=== PATIENT | male | born 1960 ===

== ENCOUNTER 2019-04-21 11:47 | Inpatient (IN) | payer BC ==
[2019-04-21] MEDS ORDERED: ACETAMINOPHEN 500 MG TAB ONE (12:24)
[2019-04-21 12:28] LABS: Arterial Blood Carboxyhemoglob 1.3 % (0-1.5); Blood Gas Oxyhemoglobin 92.2 % (94-97); Blood O2 Saturation 94.3 % (92-98.5)
[2019-04-21] MEDS ORDERED: NA CHLORIDE 0.9% 2,000 ML ONE (12:37)
[2019-04-21] MEDS ORDERED: INSULIN -REGULAR HUMAN 50 UNIT/0.5 ML ML ONE (12:37)
[2019-04-21 12:44] LABS: Absolute Lymphocytes (CBC) 0.5 K/uL (0.7-4.9); Basophils % 0.2 % (0-1.3); Hematocrit 46.2 % (39.6-49.0); Lymphocytes % 4.2 % (15.3-44.8); MPV 9.1 fL (7.6-11.3); RBC Red Blood Cell Count 5.19 M/uL (4.33-5.43)
[2019-04-21 12:48] LABS: Protime INR 0.98
[2019-04-21 12:55] LABS: Urine Blood NEGATIVE (NEG); Urine Glucose 2+ (NEG); Urine Protein TRACE (NEG)
[2019-04-21 13:01] LABS: ALT/SGPT 50 U/L (12-78); AST/SGOT 18 U/L (15-37); Alkaline Phosphatase 120 U/L (45-117); BUN Blood Urea Nitrogen 13 mg/dL (7-18); Bicarbonate 24 mmol/L (21-32); Bilirubin Direct 0.2 mg/dL (0-0.2); Bilirubin Total 0.8 mg/dL (0.2-1.0); CKMB Creatine Kinase MB 1.2 ng/mL (0.3-3.6); Creatine Phosphokinase 112 U/L (39-308); Glucose Level 361 mg/dL (74-106); Lipase 114 U/L (73-393); Potassium 3.9 mmol/L (3.5-5.1); Sodium Level 135 mmol/L (136-145); Troponin (Emerg Dept Use Only) < 0.02 ng/mL (0.0-0.045)
[2019-04-21 13:07] LABS: Urine Bacteria NONE SEEN /HPF (NONE SEEN); Urine Culture Reflex Order NOT NEEDED; Urine RBC <5 /HPF (NONE SEEN)
--- NOTE | 2019-04-21 13:52 | RAD REPORT ---
EXAM DESCRIPTION: Danica Recinos (2 Views)04/21/2019 1:46 pm CLINICAL HISTORY: Cough COMPARISON: None FINDINGS: The lungs appear clear of acute infiltrate. The heart is normal size IMPRESSION: No acute abnormalities displayed
[2019-04-21 13:55] LABS: Blood Morphology Comment NOT SEEN (NOT SEEN); Platelet Estimate ADEQ; Urine White Blood Cell Casts OK
--- NOTE | 2019-04-21 13:55 | RAD REPORT ---
EXAM DESCRIPTION: RAD - Foot Left 3 View - 04/21/2019 1:46 pm CLINICAL HISTORY: Left Foot pain FINDINGS: No fracture. Angulation deformity involves the second DIP joint which likely is chronic Osteoporosis. Large calcaneal spur is present. 5 millimeter lucency with a sclerotic border is present the base of the first proximal phalanx likely benign
[2019-04-21] MEDS ORDERED: VANCOMYCIN/NS 1 gm 1 GM/250 ML BAG IV ONE (14:00)
[2019-04-21] MEDS ORDERED: PIPER/TAZO/NS 3.375gm 3.375 GM/100 ML BAG ONE (14:05)
--- NOTE | 2019-04-21 14:18 | ER ---
Nurse's Notes [facility] Name: Jason Harvey Age: 58 yrs Sex: Male : 1960 Arrival Date: 04/21/2019 Time: 11:49 Bed 5 Private MD: out of town, doctor Diagnosis: Sepsis, unspecified organism;Cellulitis of left lower limb;Type 2 diabetes mellitus with hyperglycemia Presentation: 04/21 11:53 Presenting complaint: Patient states: "I started running a fever around 9 am today". Pt aa5 reports productive cough that began 4 weeks ago. Pt reports SOB. Transition of care: patient was not received from another setting of care. Onset of symptoms was April 21, 2019. Risk Assessment: Do you want to hurt yourself or someone else? Patient reports no desire to harm self or others. Initial Sepsis Screen: Does the patient meet any 2 criteria? Temp <36.0*C (96.8*F)) or > 38.3*C (100.9*F). HR > 90 bpm. Does the patient have a suspected source of infection? Yes: Productive cough/pneumonia. Care prior to arrival: None. 11:53 Acuity: CAREY 2 aa5 11:53 Method Of Arrival: Ambulatory aa5 Historical: - Allergies: 11:55 No Known Allergies; aa5 - PMHx: 11:55 Diabetes - NIDDM; Hypertension; Hyperlipidemia; aa5 11:57 Diabetic Neuropathy; aa5 - PSHx: 11:55 right leg- bone graft; aa5 - Immunization history:: Flu vaccine is up to date. - Social history:: Smoking status: Patient/guardian denies using tobacco. - Ebola Screening: : No symptoms or risks identified at this time. Screenin:46 Abuse screen: Denies threats or abuse. Denies injuries from another. Nutritional ph screening: No deficits noted. Tuberculosis screening: No symptoms or risk factors identified. Fall Risk None identified. Assessment: 12:30 General: Appears in no apparent distress. uncomfortable, obese, well groomed, Behavior ph is calm, cooperative, appropriate for age, Reports chills for 0-12 hours, fever for 0-12 hours. Pain: Complains of pain in left foot. Neuro: Level of Consciousness is awake, alert, obeys commands, Oriented to person, place, time, situation, Reports weakness in " all over" Denies dizziness. Cardiovascular: Reports nausea, Denies chest pain, shortness of breath, Capillary refill < 3 seconds in bilateral fingers Patient's skin is warm and dry. Respiratory: Reports shortness of breath at rest cough that is Airway is patent Respiratory effort is even, unlabored, Respiratory pattern is regular, symmetrical. GI: Reports nausea, Patient currently denies abdominal pain, diarrhea, vomiting. : Denies burning with urination, urinary frequency. Derm: Skin is intact, Skin is pink, warm \\T\\ dry. redness and swelling noted to R foot near base of second and third toes. Musculoskeletal: Circulation, motion, and sensation intact. Range of motion: intact in all extremities. 13:30 Reassessment: Pt in radiology for imaging, will reassess when returned to room, at ph bedside. 14:41 Reassessment: Patient appears in no apparent distress at this time. Patient and/or ph family updated on plan of care and expected duration. Pain level reassessed. Patient is alert, oriented x 3, equal unlabored respirations, skin warm/dry/pink. Dr Spaulding at bedside to speak w/ pt. 16:29 Reassessment: Patient appears in no apparent distress at this time. Patient and/or ph family updated on plan of care and expected duration. Pain level reassessed. Patient is alert, oriented x 3, equal unlabored respirations, skin warm/dry/pink. Pt resting quietly, awaiting room assignment, SO at bedside. Vital Signs: 11:56 BP 149 / 68; Pulse 133; Resp 20 S; Temp 101.6(O); Pulse Ox 96% on R/A; Weight 141.52 kg aa5 (R); Height 6 ft. 2 in. (187.96 cm) (R); Pain 10/10; 12:58 BP 116 / 79; ss 13:45 ph 14:39 BP 126 / 75; Pulse 115; Resp 18; Temp 100.8(O); Pulse Ox 98% ; ph 15:30 BP 137 / 62; Pulse 102; Resp 20; Pulse Ox 99% on R/A; ph 16:11 Temp 100.2(O); ss 16:31 BP 120 / 63; Pulse 100; Resp 16; Temp 100.2; Pulse Ox 97% on R/A; ph 16:31 Temp 98.6(O); ph 11:56 Body Mass Index 40.06 (141.52 kg, 187.96 cm) aa5 13:45 Pt in radiology ph ED Course: 11:49 Patient arrived in ED. dp 11:49 out of town, doctor is Private Physician. dp 11:53 Arm band placed on. aa5 11:54 Triage completed. aa5 11:56 Patti Lozano [facility]-C [facility]. snw 11:56 Frederick Pedroza MD is Attending Physician. snw 12:15 Sondra Rodgers, ASHA is Primary Nurse. ph 12:15 Initial lab(s) drawn, by me, sent to lab. First set of blood cultures drawn by me. em1 Inserted saline lock: 20 gauge in right antecubital area, using aseptic technique. Blood collected. 13:28 US Extremity Venous Unilateral Ltd In Process Unspecified. EDMS 13:46 X-ray completed. Patient tolerated procedure well. jb2 13:49 Chest Pa And Lat (2 Views) XRAY In Process Unspecified. EDMS 13:50 Foot Left 3 View XRAY In Process Unspecified. EDMS 14:16 Crystal Spaulding MD is Hospitalizing Provider. snw 14:46 Patient has correct armband on for positive identification. Bed in low position. Call ph light in reach. Side rails up X2. Pulse ox on. NIBP on. Door closed. Noise minimized. Pillow given. 14:57 EKG done, by him tech. reviewed by Patti SIMENTAL. sm3 16:31 No provider procedures requiring assistance completed. Patient admitted, IV remains in ph place. Administered Medications: 12:15 Drug: Tylenol 1000 mg Route: PO; ph 14:15 Follow up: Response: No adverse reaction; Temperature is decreased ph 12:30 Drug: NS 0.9% (30 ml/kg) 30 ml/kg {Note: 2000 initial bolus given, will reasses need ph for additional fluids.} Route: IV; Rate: bolus; Site: right antecubital; 17:08 Follow up: Response: No adverse reaction; IV Intake: 2000ml ph 17:10 Follow up: Response: No adverse reaction; IV Intake: 2000ml ph 17:10 Follow up: Response: No adverse reaction ph 12:30 Drug: Insulin Regular Human 5 units {Co-Signature: ss (Liliane Fitzpatrick RN).} Route: IVP; ph Site: right antecubital; 14:15 Follow up: Response: No adverse reaction; Blood sugar is lowered ph 14:15 Drug: Zosyn 3.375 grams Route: IVPB; Infused Over: 60 mins; Site: right antecubital; ph 14:45 Follow up: Response: No adverse reaction; IV Status: Completed infusion ph 14:58 Drug: vancoMYCIN 1 grams Route: IVPB; Infused Over: 2 hrs; Site: right antecubital; ph 17:08 Follow up: Response: No adverse reaction; IV Status: Infusion continued upon admission ph Point of Care Testing: Blood Glucose: 12:01 Blood Glucose: 365 mg/dL; em1 14:39 Blood Glucose: 272 mg/dL; ph Ranges: Intake: 17:08 IV: 2000ml; Total: 2000ml. ph 17:10 IV: 2000ml; Total: 4000ml. ph Outcome: 14:17 Decision to Hospitalize by Provider. snw 16:58 Admitted to Tele accompanied by tech, family with patient, via wheelchair, room 430, ph with chart, Report called to Nnamdi Elliott RN 16:58 Condition: stable 16:58 Instructed on the need for admit. 17:10 Patient left the ED. ph Signatures: Dispatcher [employer] EDMS Patti Lozano, POLICEMAN-C POLICEMAN-Csnw Dani Rodriguez Eric em1 Giovanna Saenz RN RN aa5 Liliane Fitzpatrick RN RN ss Sondra Rodgers RN RN Emperatriz Chamberlain 3 Juan Cavazos dp Liliane Fitzpatrick RN ss Corrections: (The following items were deleted from the chart) 15:15 14:58 Zosyn 3.375 grams IVPB in right antecubital over 60 mins ph ph 16:58 16:31 BP 120 / 63; Pulse 100bpm; Resp 16bpm; Pulse Ox 97% RA; ph ph
--- NOTE | 2019-04-21 14:18 | EDPHYS ---
Physician Documentation [facility] Name: Jason Harvey Age: 58 yrs Sex: Male : 1960 Arrival Date: 04/21/2019 Time: 11:49 Bed 5 Private MD: out of town, doctor ED Physician Frederick Pedroza HPI: 04/21 12:07 This 58 yrs old Male presents to ER via Ambulatory with complaints of Fever, Shakes. snw 12:07 The patient reports fever, that was measured at 102 degrees Fahrenheit. Onset: The snw symptoms/episode began/occurred suddenly, at 09:20. Associated signs and symptoms: Pertinent positives: cough. Severity of symptoms: At their worst the symptoms were moderate severe. The patient has not experienced similar symptoms in the past. sees Dr. Nagy in [place], pt [place], denies contact with water. Historical: - Allergies: 11:55 No Known Allergies; aa5 - PMHx: 11:55 Diabetes - NIDDM; Hypertension; Hyperlipidemia; aa5 11:57 Diabetic Neuropathy; aa5 - PSHx: 11:55 right leg- bone graft; aa5 - Immunization history:: Flu vaccine is up to date. - Social history:: Smoking status: Patient/guardian denies using tobacco. - Ebola Screening: : No symptoms or risks identified at this time. ROS: 12:06 Eyes: Negative for injury, pain, redness, and discharge, ENT: Negative for injury, snw pain, and discharge, Neck: Negative for injury, pain, and swelling, Cardiovascular: Negative for chest pain, palpitations, and edema, Respiratory: Negative for shortness of breath, wheezing, and pleuritic chest pain, + cough x 4 weeks Abdomen/GI: Negative for abdominal pain, nausea, vomiting, diarrhea, and constipation, Back: Negative for injury and pain, : Negative for injury, bleeding, discharge, and swelling, MS/Extremity: Negative for injury and deformity, Neuro: Negative for headache, weakness, numbness, tingling, and seizure. 12:06 Constitutional: Positive for body aches, chills, fatigue, fever, malaise. 12:06 Skin: Positive for ecchymosis, tenderness to left great toe and dorsal foot. Exam: 12:03 Head/Face: Normocephalic, atraumatic. Eyes: Pupils equal round and reactive to light, snw extra-ocular motions intact. Lids and lashes normal. Conjunctiva and sclera are non-icteric and not injected. Cornea within normal limits. Periorbital areas with no swelling, redness, or edema. ENT: Nares patent. No nasal discharge, no septal abnormalities noted. Tympanic membranes are normal and external auditory canals are clear. Oropharynx with no redness, swelling, or masses, exudates, or evidence of obstruction, uvula midline. Mucous membranes dry. Neck: Trachea midline, no thyromegaly or masses palpated, and no cervical lymphadenopathy. Supple, full range of motion without nuchal rigidity, or vertebral point tenderness. No Meningismus. Chest/axilla: Normal chest wall appearance and motion. Nontender with no deformity. No lesions are appreciated. 12:03 Abdomen/GI: Soft, non-tender, with normal bowel sounds. No distension or tympany. No guarding or rebound. No evidence of tenderness throughout. Back: No spinal tenderness. No costovertebral tenderness. Full range of motion. Neuro: Awake and alert, GCS 15, oriented to person, place, time, and situation. Cranial nerves II-XII grossly intact. Motor strength 5/5 in all extremities. Sensory grossly intact. Cerebellar exam normal. Normal gait. Psych: Awake, alert, with orientation to person, place and time. Behavior, mood, and affect are within normal limits. 12:03 Constitutional: The patient appears alert, awake, febrile, obese, uncomfortable. 12:03 Cardiovascular: Rate: tachycardic, Rhythm: regular, Pulses: no pulse deficits are appreciated, Edema: no pitting edema. 12:03 Respiratory: the patient does not display signs of respiratory distress, Respirations: shallow respirations, tachypnea, Breath sounds: are clear throughout, dry cough noted. 12:03 Skin: Appearance: normal except for affected area, cellulitis, that is moderate, well demarcated, on the dorsum of left foot and medial aspect of left toes. Vital Signs: 11:56 BP 149 / 68; Pulse 133; Resp 20 S; Temp 101.6(O); Pulse Ox 96% on R/A; Weight 141.52 kg aa5 (R); Height 6 ft. 2 in. (187.96 cm) (R); Pain 10/10; 12:58 BP 116 / 79; ss 13:45 ph 14:39 BP 126 / 75; Pulse 115; Resp 18; Temp 100.8(O); Pulse Ox 98% ; ph 15:30 BP 137 / 62; Pulse 102; Resp 20; Pulse Ox 99% on R/A; ph 16:11 Temp 100.2(O); ss 16:31 BP 120 / 63; Pulse 100; Resp 16; Temp 100.2; Pulse Ox 97% on R/A; ph 16:31 Temp 98.6(O); ph 11:56 Body Mass Index 40.06 (141.52 kg, 187.96 cm) aa5 13:45 Pt in radiology ph MDM: 12:10 Patient medically screened. snw 12:38 Data reviewed: vital signs, nurses notes. Data interpreted: Pulse oximetry: on room air snw is 96 %. Interpretation: acceptable, Plan: O2 by NC applied. Special discussion: O2 at 2L via NC placed for abg results of pCO2 of 28.2, pO2 of 65.5. 14:17 Physician consultation: Crystal Spaulding MD was called at 14:17, was contacted at 14:17, snw regarding admission, to the telemetry unit. 04/21 11:58 Order name: ABG; Complete Time: 13:08 snw 04/21 11:58 Order name: Basic Metabolic Panel; Complete Time: 13:08 snw 04/21 11:58 Order name: Blood Culture Adult (2) snw 04/21 11:58 Order name: CBC with Diff; Complete Time: 14:09 snw 04/21 11:58 Order name: Ckmb; Complete Time: 13:08 snw 04/21 11:58 Order name: CPK; Complete Time: 13:08 snw 04/21 11:58 Order name: Lactate; Complete Time: 13:30 snw 04/21 11:58 Order name: LFT's; Complete Time: 13:08 snw 04/21 11:58 Order name: Lipase; Complete Time: 13:08 snw 04/21 11:58 Order name: Procalcitonin; Complete Time: 13:20 snw 04/21 11:58 Order name: Protime (+inr); Complete Time: 13:20 snw 04/21 11:58 Order name: Ptt, Activated; Complete Time: 13:20 snw 04/21 11:58 Order name: Troponin (emerg Dept Use Only); Complete Time: 13:08 snw 04/21 11:58 Order name: Urine Microscopic Only; Complete Time: 13:08 snw 04/21 11:56 Order name: Chest Pa And Lat (2 Views) XRAY; Complete Time: 14:09 snw 04/21 11:58 Order name: Accucheck; Complete Time: 12:20 snw 04/21 11:58 Order name: Cardiac monitoring; Complete Time: 12:57 snw 04/21 11:58 Order name: EKG - Nurse/Tech; Complete Time: 15:11 snw 04/21 11:58 Order name: IV Saline Lock - Large Bore; Complete Time: 12:21 snw 04/21 12:07 Order name: US Extremity Venous Unilateral Ltd; Complete Time: 14:42 snw 04/21 12:09 Order name: Urine Culture snw 04/21 12:10 Order name: Foot Left 3 View XRAY; Complete Time: 14:09 snw 04/21 12:10 Order name: CRP; Complete Time: 13:20 snw 04/21 12:30 Order name: Urine Dipstick--Ancillary (enter results); Complete Time: 13:08 em1 04/21 13:57 Order name: CBC Smear Scan; Complete Time: 14:09 EDMS 04/21 11:58 Order name: Labs collected and sent; Complete Time: 12:21 snw 04/21 11:58 Order name: O2 Per Protocol; Complete Time: 12:57 snw 04/21 11:58 Order name: O2 Sat Monitoring; Complete Time: 12:57 snw 04/21 11:58 Order name: Urine Dipstick-Ancillary (obtain specimen); Complete Time: 12:30 snw 04/21 12:32 Order name: Labs - recollect needed: LactATE; Complete Time: 12:56 iw Administered Medications: 12:15 Drug: Tylenol 1000 mg Route: PO; ph 14:15 Follow up: Response: No adverse reaction; Temperature is decreased ph 12:30 Drug: NS 0.9% (30 ml/kg) 30 ml/kg {Note: 2000 initial bolus given, will reasses need ph for additional fluids.} Route: IV; Rate: bolus; Site: right antecubital; 17:08 Follow up: Response: No adverse reaction; IV Intake: 2000ml ph 17:10 Follow up: Response: No adverse reaction; IV Intake: 2000ml ph 17:10 Follow up: Response: No adverse reaction ph 12:30 Drug: Insulin Regular Human 5 units {Co-Signature: ss (Liliane Fitzpatrick RN).} Route: IVP; ph Site: right antecubital; 14:15 Follow up: Response: No adverse reaction; Blood sugar is lowered ph 14:15 Drug: Zosyn 3.375 grams Route: IVPB; Infused Over: 60 mins; Site: right antecubital; ph 14:45 Follow up: Response: No adverse reaction; IV Status: Completed infusion ph 14:58 Drug: vancoMYCIN 1 grams Route: IVPB; Infused Over: 2 hrs; Site: right antecubital; ph 17:08 Follow up: Response: No adverse reaction; IV Status: Infusion continued upon admission ph Point of Care Testing: Blood Glucose: 12:01 Blood Glucose: 365 mg/dL; em1 14:39 Blood Glucose: 272 mg/dL; ph Ranges: Critical Glucose Levels:Adult <50 mg/dl or >400 mg/dl <40 mg/dl or >180 mg/dl Disposition: 17:15 Co-signature as Attending Physician, Frederick Pedroza MD. rn Disposition: 04/21/19 14:17 Hospitalization ordered by Crystal Spaulding for Inpatient Admission. Preliminary diagnosis are Sepsis, unspecified organism, Cellulitis of left lower limb, Type 2 diabetes mellitus with hyperglycemia. - Bed requested for Telemetry/MedSurg (Inpatient). - Status is Inpatient Admission. ph - Condition is Stable. - Problem is new. - Symptoms are unchanged. UTI on Admission? No Signatures: Dispatcher [employer] Jacqueline Whelan RN RN dw Therrien, Shelly, RADIO MACHINIST-C RADIO MACHINIST-Any Guo RN RN iw Nieto, Roman, MD MD rn Calderon, Audri, RN RN aa5 Sondra Rodgers RN RN Liliane Fitzpatrick RN ss Corrections: (The following items were deleted from the chart) 16:34 14:17 Hospitalization Ordered by Crystal Spaulding MD for Inpatient Admission. Preliminary dw diagnosis is Sepsis, unspecified organism; Cellulitis of left lower limb; Type 2 diabetes mellitus with hyperglycemia. Bed requested for Telemetry/MedSurg (Inpatient). Status is Inpatient Admission. Condition is Stable. Problem is new. Symptoms are unchanged. UTI on Admission? No. snw 17:10 16:34 04/21/2019 14:17 Hospitalization Ordered by Crystal Spaulding MD for Inpatient ph Admission. Preliminary diagnosis is Sepsis, unspecified organism; Cellulitis of left lower limb; Type 2 diabetes mellitus with hyperglycemia. Bed requested for Telemetry/MedSurg (Inpatient). Status is Inpatient Admission. Condition is Stable. Problem is new. Symptoms are unchanged. UTI on Admission? No. dw
--- NOTE | 2019-04-21 14:32 | RAD REPORT ---
EXAM DESCRIPTION: USEyue Venous Uni Ltd04/21/2019 1:27 pm CLINICAL HISTORY: left leg pain and swelling. COMPARISON: None. FINDINGS: Left common femoral, superficial femoral, popliteal veins are compressible and demonstrat e augmentation. Doppler demonstrates good flow. IMPRESSION: No evidence of deep venous thrombosis involving the left lower extremity.
--- NOTE | 2019-04-21 16:48 | P.HP ---
Certification for Inpatient Patient admitted to: Inpatient With expected LOS: >2 Midnights Practitioner: I am a practitioner with admitting privileges, knowledge of patient current condition, hospital course, and medical plan of care. Services: Services provided to patient in accordance with Admission requirements found in Title 42 Section 412.3 of the Code of Federal Regulations Patient History Date of Service: 04/21/19 History of Present Illness: This is a 58-year-old male with a PMH of NIDDM, HTN, DM neuropathy who presented with fevers and chills. Per patient, he started with fevers and chills for the past 1 day. He also endorses left foot pain that started 2 days ago. He was progressively getting worse and therefor he came into the ED. In the ER, BP was 149/68, HR 133, RR 20, Tm of 101.6 and BMI of 40.06. Labs were remarkable for elevated lactic acid, WBC count of 12.5 and hyperglycemia. Blood gas was remarkable for pH of 7.48, low pCO2, PO2 and HCO3-. CXR was negative. LE venous ultrasound was negative for DVT and foot x-ray was with 5 mm lucency w/ sclerotic border base of 1st proximal phalanx. He was given IVF, insulin, vancomycin and Zosyn. At the time of my exam, he was AAOx3, in no acute distress. He was still tachycardic. He was admitted for sepsis, possible source being cellulitis. Home medications list reviewed: Yes - Past Medical/Surgical History -: NIDDM -: HTN -: HLD -: Diabetic neuropathy - Social History Smoking Status: Never smoker Review of Systems 10-point ROS is otherwise unremarkable Physical Examination - Vital Signs Temperature: 101.6 F Blood Pressure: 149/68 Pulse: 133 Respirations: 20 Pulse Ox (%): 96 (RA) - Physical Exam General: Alert, In no apparent distress, Oriented x3 HEENT: Atraumatic, PERRLA, Mucous membr. moist/pink, EOMI, Sclerae nonicteric Neck: Supple, 2+ carotid pulse no bruit, No LAD, Without JVD or thyroid abnormality Respiratory: Clear to auscultation bilaterally, Normal air movement Cardiovascular: Regular rate/rhythm, Normal S1 S2 Gastrointestinal: Normal bowel sounds, No tenderness Musculoskeletal: No tenderness Integumentary: Erythema, Warmth, Other (cellulitis on left foot, noted near 2nd- 3rd toe; warmth to touch compared to right foot. ) Neurological: Normal gait, Normal speech, Normal strength at 5/5 x4 extr, Normal tone, Normal affect Lymphatics: No axilla or inguinal lymphadenopathy - Studies Laboratory Data (last 24 hrs) 04/21/19 12:15: PT 11.6, INR 0.98, APTT 28.0 04/21/19 12:15: WBC 12.5 H, Hgb 15.5, Hct 46.2, Plt Count 240 04/21/19 12:15: Sodium 135 L, Potassium 3.9, BUN 13, Creatinine 1.44 H, Glucose 361 H, Total Bilirubin 0.8, AST 18, ALT 50, Alkaline Phosphatase 120 H, Lipase 114 Assessment and Plan - Problems (Diagnosis) (1) Sepsis Current Visit: Yes Status: Acute Plan: - Tachycardia, fever, Eelvated WBC; Likely source LLE cellulitis - Continue IVF. - Continue IV antibiotics with vancomycin and Zosyn - Monitor vital signs and am labs - Elevated CRP and lactic acid Qualifiers: Sepsis type: sepsis due to unspecified organism Qualified Code(s): A41.9 - Sepsis, unspecified organism (2) Cellulitis Current Visit: Yes Status: Acute Plan: - IV antibiotics as above - Demarcate area of infection Qualifiers: Site of cellulitis: extremity Site of cellulitis of extremity: lower extremity Laterality: left Qualified Code(s): L03.116 - Cellulitis of left lower limb (3) SALAS (acute kidney injury) Current Visit: Yes Status: Acute Plan: Continue IVF - Avoid nephrotoxic medications - Monitor via labs (4) Diabetes mellitus Current Visit: Yes Status: Acute Plan: - Accu-checks, mild sliding scale insulin. - Check A1c Qualifiers: Diabetes mellitus type: type 2 Diabetes mellitus halfway insulin use: without long term care pharmacist use Diabetes mellitus complication status: with neurologic complications Diabetes mellitus complication detail: with polyneuropathy Qualified Code(s): E11.42 - Type 2 diabetes mellitus with diabetic polyneuropathy (5) Diabetic neuropathy Current Visit: No Status: Chronic Plan: Continue home medications. Qualifiers: Diabetes mellitus type: type 2 Diabetes mellitus complication detail: diabetic polyneuropathy Qualified Code(s): E11.42 - Type 2 diabetes mellitus with diabetic polyneuropathy (6) Hypertension Current Visit: No Status: Chronic Qualifiers: Hypertension type: essential hypertension Qualified Code(s): I10 - Essential (primary) hypertension (7) Hyperlipidemia Current Visit: No Status: Chronic Qualifiers: Hyperlipidemia type: unspecified Qualified Code(s): E78.5 - Hyperlipidemia , unspecified - Plan DVT prophylaxis: Lovenox GI prophylaxis: None Diet: 1800 Diabetic Disposition: Admit to floor with tele. Pending symptomatic improvement. - Advance Directives Does patient have a Living Will: No Does patient have a Durable POA for Healthcare: No
[2019-04-21] MEDS: NA CHLORIDE 0.9% 1,000 ML IV SCH (17:30)
[2019-04-21] MEDS: PIPER/TAZO/NS 2.25gm 2.25 GM/50 ML BAG IVPB SCH ×2 (17:30→23:52)
[2019-04-21] MEDS ORDERED: VANCOMYCIN 1.25 GM in NA CHLORIDE 0.9% 250 ML IVPB SCH (17:30)
[2019-04-21] MEDS ORDERED: ONDANSETRON 4 MG/2 ML VIAL IV PRN (17:30)
[2019-04-21] MEDS ORDERED: VANCOMYCIN 2 GM in NA CHLORIDE 0.9% 500 ML IVPB ONE (18:00)
[2019-04-21] MEDS ORDERED: NA CHLORIDE 0.9% 1,000 ML ONE (18:02)
[2019-04-21] MEDS: INSULIN -REGULAR HUMAN 50 UNIT/0.5 ML ML SQ SCH (18:08)
[2019-04-21] MEDS ORDERED: PNEUMOCOCCAL VACCINE 0.5 ML IMVAC ONE (19:00)
[2019-04-21] MEDS: ACETAMINOPHEN 500 MG TAB PO PRN (23:11)
[2019-04-22] MEDS ORDERED: BENZONATATE 100 MG CAP PO PRN (03:10)
[2019-04-22] MEDS: NA CHLORIDE 0.9% 1,000 ML IV SCH ×2 (03:27→13:30)
[2019-04-22] MEDS: ACETAMINOPHEN 500 MG TAB PO PRN ×2 (04:07→21:47)
[2019-04-22 04:30] LABS: Absolute Lymphocytes (CBC) 0.9 K/uL (0.7-4.9); Basophils % 0.2 % (0-1.3); Hematocrit 40.9 % (39.6-49.0); Lymphocytes % 9.7 % (15.3-44.8); MPV 8.9 fL (7.6-11.3); RBC Red Blood Cell Count 4.57 M/uL (4.33-5.43)
[2019-04-22 04:48] LABS: Albumin 3.3 g/dL (3.4-5.0); Bilirubin Total 0.9 mg/dL (0.2-1.0); Potassium 3.8 mmol/L (3.5-5.1)
[2019-04-22] MEDS: GUAIFENESIN/CODEINE 5ML UCUP PO PRN ×4 (05:22→21:46)
[2019-04-22 05:30] LABS: Magnesium 1.9 mg/dL (1.8-2.4)
[2019-04-22] MEDS: PIPER/TAZO/NS 2.25gm 2.25 GM/50 ML BAG IVPB SCH ×2 (08:14→16:08)
[2019-04-22] MEDS: ENOXAPARIN 40 MG/0.4 ML SQ SCH (08:15)
[2019-04-22] MEDS: INSULIN -REGULAR HUMAN 50 UNIT/0.5 ML ML SQ SCH ×4 (08:15→21:48)
[2019-04-22] MEDS: POTASS/SODIUM PHOSPHATE 1 PKT POWD.PACK PO SCH ×3 (08:15→10:10)
--- NOTE | 2019-04-22 09:30 | RAD REPORT ---
EXAM DESCRIPTION: RAD - Foot Left 2 View - 04/22/2019 9:11 am CLINICAL HISTORY: left foot great toe cellulitis COMPARISON: Foot Left 3 View dated 04/21/2019 FINDINGS: Soft tissue swelling is seen about the great toe, particularly along the medial margin of the interphalangeal joint. No radiographic finding to suggest osteomyelitis. Subtle non marginal eros ion seen along the medial aspect of the distal first metatarsal shaft as well as along the margin of the first tarsal metatarsal joint could indicate the presence of gout. Correlation with uric acid lev els may be of value. Chronic angulation involving the DIP joint of the second toe is again seen. Small plantar calcaneal spur evident. IMPRESSION: Small erosion noted involving the interphalangeal joint of the great toe as well as the medial margin of the first tarsal metatarsal joint. Soft tissue swelling is also seen along the media l aspect of the interphalangeal joint of the great toe. The findings could indicate the presence of g out and uric acid level correlation may be of value.
--- NOTE | 2019-04-22 10:41 | EKG ---
Test Date: 2019-04-21 Test Time: 14:54:44 Molecular Physicist: CHAPIN MEASUREMENT RESULTS: Intervals: Rate: 109 MT: 164 QRSD: 58 QT: 286 QTc: 385 [place]: P: 30 MT: 164 QRS: -10 T: -6 INTERPRETIVE STATEMENTS: Sinus tachycardia Low voltage QRS Inferior infarct, age undetermined Abnormal ECG No previous ECG available for comparison Electronically Signed On 04-22-19 10:38:36 CDT by Ruben Khalil
[2019-04-22] MEDS: VANCOMYCIN 2 GM in NA CHLORIDE 0.9% 500 ML IVPB SCH (11:52)
--- NOTE | 2019-04-22 12:46 | P.CNS ---
Date of Consult: 04/22/19 Reason for Consult: cellulitis left foot Requesting Physician: Elke Fleming Chief Complaint: Redness and swelling left foot x one day Allergies No Known Allergies Allergy (Verified 04/21/19 17:29) Home Medications: Atorvastatin Calcium [Lipitor] 40 mg PO BEDTIME 04/21/19 Gabapentin [Neurontin] 600 mg PO TID 04/21/19 Glimepiride [Amaryl] 2 mg PO DAILY 04/21/19 Metformin ER [Glucophage ER] 1,000 mg PO BID 04/21/19 Olmesartan Medoxomil [Benicar] 40 mg PO DAILY 04/21/19 - Past Medical/Surgical History Diabetic: Yes -: NIDDM -: HTN -: HLD -: Diabetic neuropathy - Social History Alcohol use: No CD- Drugs: No Caffeine use: No Place of Residence: Home Review of Systems 10-point ROS is otherwise unremarkable Physical Examination Temp Pulse Resp BP Pulse Ox 98.1 F 80 18 116/67 98 04/22/19 12:00 04/22/19 12:00 04/22/19 12:00 04/22/19 12:00 04/22/19 12:00 General: Alert, In no apparent distress, Oriented x3 Cardiovascular: No edema, Normal pulses Capillary refill: <2 Seconds Musculoskeletal: No clubbing, No swelling, No contractures, No erythema, No tenderness, No warmth Integumentary: Other (Bullous lesion medial aspect of left hallux with erythema proximally to 1st mpj and extending laterally to second digit. Upon incision and drainage of lesion without anesthesia note seropurulent drainage. No sinus track formation or probing to bone noted. granular base of wound.) Neurological: Abnormal sensation (absent proprioceptive and protective sensation to left foot) Laboratory Data (last 24 hrs) 04/21/19 12:15: PT 11.6, INR 0.98, APTT 28.0 04/21/19 12:15: WBC 12.5 H, Hgb 15.5, Hct 46.2, Plt Count 240 04/21/19 12:15: Sodium 135 L, Potassium 3.9, BUN 13, Creatinine 1.44 H, Glucose 361 H, Total Bilirubin 0.8, AST 18, ALT 50, Alkaline Phosphatase 120 H, Lipase 114 - Problems (1) Cellulitis Current Visit: Yes Status: Acute Plan: Bedside debridment with saline irrigation and wound cultures taken. Bactroban to wound bid. I would suggest iv antibiotics for one more day then probable discharge tomorrow as patient seems to be responding to current iv antibiotic treatment Qualifiers: Site of cellulitis: extremity Site of cellulitis of extremity: lower extremity Laterality: left Qualified Code(s): L03.116 - Cellulitis of left lower limb Critical Care: No Time Spent Managing Pts care (In Minutes): 30
[2019-04-22] MEDS: GABAPENTIN 300 MG CAP PO SCH ×2 (13:11→21:47)
--- NOTE | 2019-04-22 18:55 | PN ---
Date of Progress Note: 04/22/2019 Subjective: The patient is seen and examined, chart reviewed and case discussed with RN and Dr. Costa. The patient reports some pain and redness in his foot. Medications: List reviewed. Physical Examination: Vital Signs: T-max was 101.6, temperature currently is 98.1, heart rate 80, blood pressure 116/67, respirations 18, O2 98% on 2 L via nasal cannula. General: Awake, alert, oriented x3. Morbidly obese, ill-appearing male. CV: S1, S2. Regular rate and rhythm. Peripheral pulses are present. Respiratory: Moving air well bilaterally. No wheezing or stridor. Gastrointestinal: Abdomen is soft, nontender, nondistended. Positive bowel sounds. No guarding or rigidity. Extremities: No clubbing, cyanosis. The patient has pedal edema on the left foot. Skin: Left foot erythema with bullous lesion on the first toe, lateral aspect. Neuro: Cranial nerves 2 through 12 intact grossly. No focal neurological deficit. The patient has decreased sensation to light touch in lower extremities bilaterally. Laboratory Data: Sodium 139, potassium 3.8, chloride 106, CO2 23, BUN 10, creatinine 1.34, glucose 267, calcium 7.7, phosphorus 2, magnesium 1.9, albumin 1.3. Triglycerides 115, cholesterol 106, LDL 46, HDL 37. WBC 9.8, H and H 13.9 and 40.9, platelets 192, neutrophils 83%. Cultures are pending at this time. Foot x-ray personally reviewed shows a small erosion noted involving the interphalangeal joint of the great toe as well as the medial margin of the first metatarsal joint. Soft tissue swelling is also seen along the medial aspect of the interphalangeal joint of the great toe. Findings could indicate presence of gout. Assessment: A 58-year-old male with; 1. Sepsis, improving. WBC count has improved. The patient had temperature of 101.6 yesterday afternoon, responding well to IV antibiotics. We will continue for now. Monitor blood cultures secondary to left lower extremity cellulitis. 2. Left lower extremity cellulitis with involvement of the foot. Appreciate Dr. Costa's input. He had a bedside debridement done. Foot x-ray showed some erosion doubt osteomyelitis. No acute fractures. Wound cultures are pending. 3. Acute kidney injury, improving. We will continue with IV fluids, avoid NSAIDs. 4. Diabetes mellitus type 2 without long-term use of insulin with polyneuropathy. Continue Accu-Cheks and sliding scale insulin. 5. Diabetic neuropathy. 6. Essential hypertension, stable. We will resume home medications. 7. Mixed hyperlipidemia, continue statin. 8. Deep vein thrombosis prophylaxis with Lovenox. Plan: Likely discharge in a.m. if cultures remain negative and afebrile for greater than 24 hours. /SHARON Voice ID: [id number] Report ID: [id number] MTDTroy
[2019-04-22] MEDS ORDERED: ATORVASTATIN 40 MG TAB PO SCH (21:00)
[2019-04-22] MEDS: MUPIROCIN 2% OINT 22GM TUBE TOP SCH (21:50)
[2019-04-23] MEDS: PIPER/TAZO/NS 2.25gm 2.25 GM/50 ML BAG IVPB SCH ×2 (00:46→08:19)
[2019-04-23 04:42] LABS: Absolute Lymphocytes (CBC) 1.5 K/uL (0.7-4.9); Basophils % 0.6 % (0-1.3); Hematocrit 37.7 % (39.6-49.0); Lymphocytes % 22.2 % (15.3-44.8); RBC Red Blood Cell Count 4.18 M/uL (4.33-5.43)
[2019-04-23 04:52] LABS: Albumin 2.8 g/dL (3.4-5.0); Bilirubin Total 0.5 mg/dL (0.2-1.0); Phosphorus 2.8 mg/dL (2.5-4.9); Potassium 3.8 mmol/L (3.5-5.1); Protein, Total 6.2 g/dL (6.4-8.2)
[2019-04-23] MEDS ORDERED: POTASSIUM CL SA 10 MEQ TAB PO ONE (06:03)
[2019-04-23] MEDS: GUAIFENESIN/CODEINE 5ML UCUP PO PRN (06:54)
[2019-04-23] MEDS: VANCOMYCIN 2 GM in NA CHLORIDE 0.9% 500 ML IVPB SCH (06:54)
[2019-04-23] MEDS: ACETAMINOPHEN 500 MG TAB PO PRN (06:56)
[2019-04-23] MEDS ORDERED: GLIMEPIRIDE 2 MG TABLET PO SCH (08:00)
[2019-04-23] MEDS: ENOXAPARIN 40 MG/0.4 ML SQ SCH (08:20)
[2019-04-23] MEDS: INSULIN -REGULAR HUMAN 50 UNIT/0.5 ML ML SQ SCH ×2 (08:21→12:04)
[2019-04-23] MEDS: GABAPENTIN 300 MG CAP PO SCH ×2 (08:21→13:46)
[2019-04-23] MEDS: MUPIROCIN 2% OINT 22GM TUBE TOP SCH (08:23)
[2019-04-23] MEDS ORDERED: VALSARTAN 80 MG TAB PO SCH (09:00)
[2019-04-23] MEDS ORDERED: D50W 25 GM/50 ML SYRINGE IV PRN (09:36)
[2019-04-23] MEDS ORDERED: GLUCAGON 1 MG/VIAL IM PRN (09:36)
[2019-04-23] MEDS ORDERED: INSULIN GLARGINE 100 UNITS/ML SQ ONE (09:38)
--- NOTE | 2019-04-24 00:34 | DS ---
Date of Discharge: 04/23/2019 Admitting Diagnoses: 1.Sepsis. 2.Cellulitis. 3.Acute kidney injury. 4.Diabetes mellitus type 2 with neuropathy. 5.Essential hypertension. 6.Hyperlipidemia. Discharge Diagnoses: 1.Sepsis, resolved. 2.Left lower extremity cellulitis involving the foot, improved, secondary to coagulase-positive Stap hylococcus. 3.Acute kidney injury, resolved. 4.Diabetes mellitus type 2 without long-term use of insulin with polyneuropathy, uncontrolled. Hemo globin A1c greater than 11%. 5.Essential hypertension. 6.Mixed hyperlipidemia. Consultants: Dr. Costa with Podiatry. Procedures: Bedside debridement of a bullous lesion on the hallux. Hospital Course: Patient is a 58-year-old male with past medical history of poorly-controlled diabet es, not on insulin; hypertension; neuropathy, comes in with fevers, chills from out of town in [facility], started noticing left foot pain. Denies any trauma. Patient was found to have cellulitis and was admitted to the hospital for further evaluation and treatment. He responded well to IV antibiotics. His white blood cell count improved and normalized. Cultures including blood cultures remained neg ative; however, wound cultures grew out Staph coagulase positive. Patient was also seen by Podiatry, Dr. Costa, and he had bedside debridement of a bullous lesion on his left great toe, which was likel y the culprit for his cellulitis. Overall, patient did well. He was able to be weaned off O2. His ABG did not show any acidosis. His kidney function normalized with IV hydration. Lactic acid normal ized as well. Patient was counseled regarding his uncontrolled diabetes. He was started on long-act ing insulin. He was recommended to monitor his blood glucose levels fasting and randomly to keep a l og and provide it to his primary care physician in order to adjust his insulin dose. He was also ref erred to the [facility] to the hospital, however, stated that he is from [place] out of town and will likely not be able to make it. He also declined following up [facility] Dr. Costa with Podiatry stating that it is out of town for him and he is only here on vacation. Hayde jefferson was then cleared for discharge from Podiatry standpoint. He was sent home in a stable conditi on. Medications: As per medication reconciliation list. Due to his symptoms of bronchitis, he was given cough syrup. He will finish off a course of doxycycl ine and Keflex, and continue with Bactroban ointment topically. Followup: Follow up with primary care physician in 2 to 3 days. Return to ER for worsening conditio n. Diet: Diabetic. Activity: As tolerated. Physical Examination: General: Awake, alert, and oriented x3. Obese male. CV: S1, S2. Respiratory: Moving air well bilaterally. Abdomen: Soft, nontender, nondistended. Positive bowel sounds. Extremities: No clubbing, cyanosis, or edema. Neurologic: Nonfocal. Skin: Left foot erythema improving. Time Spent: Total time spent discharging the patient was 39 minutes. SUN Voice ID: [id number] Report ID: [id number]
== END 2019-04-23 14:19 | disposition home or self-care (01) | DRG 872 ==
LOC: ER 11:47 → ERHOLD 14:17 → 4TH 17:00
PROVIDERS: ADMIT Family Medicine; ATTEND Family Medicine
PROC: 0HDNXZZ Extraction of Left Foot Skin, External Approach (ICD-10-PCS; principal; 2019-04-22)
DX: A41.9 Sepsis, unspecified organism (principal); L03.116 Cellulitis of left lower limb; N17.9 Acute kidney failure, unspecified; B95.7 Other staphylococcus as the cause of diseases classified elsewhere; E11.42 Type 2 diabetes mellitus with diabetic polyneuropathy; I10 Essential (primary) hypertension; E78.2 Mixed hyperlipidemia; E11.65 Type 2 diabetes mellitus with hyperglycemia
CPT/HCPCS: 36415; 71046; 80048; 80053; 80061; 80076; 81003; 81015; 82550; 82553; 82805; 82962; 83036; 83605; 83690; 83735; 84100; 84145; 84484; 85025; 85610; 85730; 86140; 87040; 87070; 87075; 87077; 87086; 87088; 87186; 87205; 93005; 93971; 94760; 96365; 96366; 96367; 96375; 99285; J1650; J2543; J3370; J7030